=== PATIENT | male | born 1970 | race Caucasian/White ===

== ENCOUNTER 2020-01-26 18:45 | Emergency (ER) | payer OTHER, SELFPAY ==
[2020-01-26 18:57] VITALS: BP 135/82; PULSE 67; RESP 18; TEMP 36.6; O2SAT 97
--- NOTE | 2020-01-26 18:58 | ED.MALEGU ---
HPI - Male Genitourinary General Chief complaint: Urogenital-Male Stated complaint: urine/blood Time Seen by Provider: 01/26/20 18:58 Source: patient Mode of arrival: ambulatory Limitations: no limitations History of Present Illness HPI Narrative: Logan Winn is a 49-year-old male with no PMH who comes to express care with blood in urine that started work today, denies pain. Thinks he may have had some blood in urine 2 days ago but chalked off to dark urine from dehydration. Related Data Home Medications Medication Instructions Recorded Confirmed No Home Medications 01/26/20 01/26/20 Allergies Allergy/AdvReac Type Severity Reaction Status Date / Time No Known Allergies Allergy Verified 01/26/20 18:57 Review of Systems Review of Systems: Narrative: CONSTITUTIONAL: Denies fever, chills, sweats. EYES: Denies visual changes, redness, discharge. ENT: Denies rhinorrhea, congestion, sore throat, otalgia. CARDIOVASCULAR: Denies chest pain, palpitations, edema. RESPIRATORY: Denies dyspnea, wheezing, cough GASTROINTESTINAL: Denies abdominal pain, nausea, vomiting, diarrhea. GENITOURINARY: Denies dysuria, has hematuria, SKIN: Denies rash or itching. NEUROLOGIC: Denies numbness, or focal weakness. PSYCHIATRIC: Denies anxiety or depression. [facility] Family History Family History Other Emphysema/COPD Social History Social History Smoking status: Never smoker Alcohol intake: former Comments At time of signature, I agree with nursing past medical, surgical, social and family history. There is no relevant family history pertinent to the presenting complaint. Exam Narrative: Exam Narrative: GENERAL: This is a well-nourished, well-developed patient, in mild distress. afebrile, eating and drinking HEAD: normocephalic, atraumatic. EYES: Sclera clear/white. Vision is grossly intact. EARS: External ears normal, . Hearing grossly intact. NOSE: External nose normal with nasal discharge, nares without redness, has rhinorrhea. THROAT: Mucous membranes moist, posterior pharynx mild erythema NECK: Neck supple, non-tender CARDIOVASCULAR: Regular rate and rhythm without murmurs, gallops, or rubs. RESPIRATORY: Clear to auscultation. Breath sounds equal bilaterally. No wheezes, rales, or rhonchi. Occ dry cough GASTROINTESTINAL: Abdomen soft, non-tender, SKIN: warm, intact with no suspicious lesions or rash, good texture and turgor. NEURO: awake, alert, and oriented to person, place and time. There were no obvious focal neurologic abnormalities. Steady gait EXTREMITIES: Normal range of motion. BACK: Nontender without deformity Course Course Emergency Course: During this positive for 2+ blood otherwise negative Discussed possible reasons for hematuria, blood in urine, including renal calculi, large prostate, urological issues such as mass. Recommended he hydrate well, make appointment with urologist for follow-up, to then decide whether additional testing and/or imaging is required Vital Signs Vital signs: Vital Signs Temperature 97.9 F 01/26/20 18:57 Pulse Rate 67 01/26/20 18:57 Respiratory Rate 18 01/26/20 18:57 Blood Pressure 135/82 01/26/20 18:57 Pulse Oximetry 97 01/26/20 18:57 Temperature 97.9 F 01/26/20 18:57 Pulse Rate 67 01/26/20 18:57 Respiratory Rate 18 01/26/20 18:57 Blood Pressure 135/82 01/26/20 18:57 Pulse Oximetry 97 01/26/20 18:57 MDM - Male Genitourinary Differential Diagnosis Differential diagnosis: Likely urinary tract infection, urethritis and other Lab Data Labs: Urine Glucose Negative Reference Range: Negative Urine Bilirubin Negative Reference Range: Negative Urine Ketone Negative Reference Range: Negative Urine Specific [place] 1.010 Reference Range:1.001-1.035
== END 2020-01-26 19:21 | disposition home or self-care (01) ==
PROVIDERS: Emergency Provider Nurse Practitioner
DX: R31.29 Other microscopic hematuria (principal)
CPT/HCPCS: 81003; 99202; G0463